=== PATIENT | female | born 1970 | race Caucasian/White ===

== ENCOUNTER 2018-05-16 10:54 | Emergency (ER) | payer MEDICAID ==
[~2018-05-16] VITALS: Ht 147.3 cm; Wt 80.7 kg
[2018-05-16 11:12] VITALS: BP_SYST 113
--- NOTE | 2018-05-16 11:20 | NUR ---
Patient triaged and placed in waiting room. VSS and patient appears in no acute distress at this time. Accompanied by , awaiting available bed, and MD notified of need for MSE.
--- NOTE | 2018-05-16 13:13 | NUR ---
BROUGHT BACK TO [facility] BED FOR EVALUATION BY [employer] INSPECTOR [place]ACOCK
--- NOTE | 2018-05-16 13:14 | NUR ---
Patient is awake, alert, and oriented x4. She is complaining of cough. She denies previous medical history.
--- NOTE | 2018-05-16 13:40 | NUR ---
Patient given written and verbal discharge instructions and verbalizes understanding. ER ASBEST[facility]INGLE ROOFER discussed with patient the results and treatment provided. Patient in stable condition. ID arm band removed. Rx of augmentin, motrin, medrol dose pack, albuterol, promethezine w/codeine given. Patient educated on pain management and to follow up with PMD. Pain Scale 0/10. Opportunity for questions provided and answered. Medication side effect fact sheet provided.
[2018-05-16 13:41] VITALS: BP_SYST 113
== END 2018-05-16 13:40 | disposition home or self-care (01) ==
LOC: SED 10:54
DX: J20.9 Acute bronchitis, unspecified (principal)
CPT/HCPCS: 99283

== ENCOUNTER 2019-01-05 13:14 | Emergency (ER) | payer MEDICAID ==
[~2019-01-05] VITALS: Ht 149.9 cm; Wt 80.7 kg
[2019-01-05 13:23] VITALS: BP_SYST 130
[2019-01-05] MEDS ORDERED: KETOROLAC TROMETHAMINE 60 MG/2 ML VIAL IM ONE (13:45)
[2019-01-05 15:23] VITALS: BP_SYST 123
== END 2019-01-05 15:23 | disposition home or self-care (01) ==
LOC: SED 13:14
DX: M06.9 Rheumatoid arthritis, unspecified (principal)
CPT/HCPCS: 96372; 99283; J1885